=== PATIENT | male | born 1950 | race Caucasian/White ===

== ENCOUNTER 2023-02-25 12:36 | Outpatient (CLI) | payer OTHER, SELFPAY | END 2023-02-25 12:37 | disposition home or self-care (01) | LOC: NFLDLAB 03-29 17:00 | PROVIDERS: PCP Family Medicine; Visit Provider Family Medicine | DX: E78.5 Hyperlipidemia, unspecified (principal); R53.83 Other fatigue; R23.2 Flushing; R61 Generalized hyperhidrosis | CPT/HCPCS: 83497 ==

== ENCOUNTER 2023-03-11 10:29 | Outpatient (CLI) | payer OTHER, SELFPAY | END 2023-03-11 10:30 | disposition home or self-care (01) | PROVIDERS: PCP Family Medicine; Visit Provider Family Medicine | DX: Z12.5 Encounter for screening for malignant neoplasm of prostate (principal) | CPT/HCPCS: 84153 ==

== ENCOUNTER 2024-03-20 07:02 | Outpatient (CLI) | payer OTHER, SELFPAY ==
--- OUTSIDE RECORDS SUMMARY | 2024-03-20 07:05 | XMS_ITS | Clinical Summary ---
Author Organization [employer] [facility] [employer] Address [place], [place] [address] Care Team Providers Care Vehicle Return Associate Name Role Phone [facility] Primary Care Provider [phone] Immunizations Name Administration Dates Next Due AMB Influenza, IIV3 (Age >=3 years)([facility]) 08/17/2008 Tuberculin (PPD) 10/01/2004 Social History Tobacco Use Types Packs/Day Years Used Date Smoking Tobacco: Never Assessed Sex and Gender Information Value Date Recorded Sex Assigned at Not on file Gender Identity Not on file Sexual Orientation Not on file Plan of Treatment Health Maintenance Due Date Last Done Comments Tdap 1963 Depression screening for age 12+ 1964 BMI (ht and wt on same day) for age 18+ 1970 Hepatitis C screening for age 18-79 1970 Tetanus booster 1972 Colonoscopy through age 75 1997 Lipids for age 45-75 1997 Zoster (shingles) series for age 50+ (1 of 2) 07/12/20 02 Pneumococcal series for age 65+ (1 of 1 - PCV) 017 COVID-19 vaccine series (2 - 2022-24 season) 3 11/18/2022 Influenza for age 65+ 05/21/2024 08/17/2008 Care Teams Vehicle Return Associate Relationship Specialty Start Date End Date [facility] [address] [place] [address] PCP - General 08/17/08
--- NOTE | 2024-03-20 07:15 | CRLHL7_ITS ---
For Patients: As a result of the Cures Act, medical imaging exams and procedure reports are released immediately into your electronic medical record. You may view this report before your referring provider. If you have questions, please contact your health care provider. Indication: Abdominal aortic aneurysm screening. Technique: None. Comparison: None. Findings/Impression: Proximal aorta: 2.8 x 2.8 cm. Mid aorta: 1.9 x 1.9 cm. Distal aorta: 1.9 x 1.9 cm. Left iliac artery: 1.2 x 1.2 cm. Right iliac artery: 1.2 x 1.2 cm. Periaortic abnormalities: None significant. No sign of aneurysm. Dictated by Jamar Chang MD @ 03/20/2024 8:23:14 AM (Electronically Signed)
== END 2024-03-20 07:03 | disposition home or self-care (01) ==
PROVIDERS: PCP Family Medicine; Visit Provider Family Medicine
DX: Z13.6 Encounter for screening for cardiovascular disorders (principal)
CPT/HCPCS: 76706